=== PATIENT | female | born 1985 | race Caucasian/White ===

== ENCOUNTER 2016-11-17 12:19 | Emergency (ER) | payer MEDICAID ==
[2016-11-17 12:33] VITALS: RESP 18; TEMP 98
--- NOTE | 2016-11-17 12:44 | UCPHY ---
[id number]/08/17 12:33 HPI/ROS: HPI: ROS: (Brenda Shepherd) Past Medical/Surgical History: HPI: 31-year-old female presents to urgent care with chief concern cough, subjective fever, burning sensation in her chest. Symptoms onset 2 days ago. Reports associated headache, sore throat, loss of voice, severe myalgias. Has taken ibuprofen and Tylenol with some improvement. Denies dizziness, dysphagia , shortness of breath, chest pain, abdominal pain, vomiting, diarrhea. Traveled back from [place] within the past week. Did not receive a flu shot this year. Has no primary care provider. ROS:10 point review of systems is negative other than as stated in HPI (Brenda Shepherd) Physical Exam: Vital signs stable, reviewed by me General: Awake, alert, calm, cooperative. No acute distress. Head: Normalocephalic. Atraumatic. EENT: PERRLA. EOMI. No pallor or injection. Anicteric. No nystagmus. No injection. TMs intact bilaterally with normal landmarks. Rhinorrhea present with mildly erythematous nasal turbinates. Oropharynx without redness, exudates , or lesions. Tonsils 2+ bilaterally, no exudates. Neck: Supple, nontender. No lymphadenopathy. Full range of motion. No meningismus. Respiratory: Breathing unlabored. Breath sounds equal bilaterally and clear to auscultation. No adventitious sounds. CV: Chest nontender, atraumatic. Heart rate regular. No murmur, distal pulses 2+ bilaterally. Brisk cap refill all extremities. GI: Abdomen soft, nontender. Bowel sounds normoactive and positive x4 quadrants. Neuro: Alert. Oriented x 3. Speech clear. Nonfocal cranial nerves throughout. Sensation intact all extremities. Skin: Skin warm, dry, intact. No rash. Skin turgor normal. Extremities: Full range of motion in all 4 extremities. Strength 5+ all extremities. (Brenda Shepherd) Constitutional: Initial Vital Signs Temperature (C) 36.6 C 11/17/16 12:31 Heart Rate 99 11/17/16 12:31 Respiratory Rate 18 11/17/16 12:31 Blood Pressure 122/86 H 11/17/16 12:31 O2 Sat (%) 99 11/17/16 12:31 O2 Delivery Mode Room Air Allergies/Adverse Reactions: No Known Allergies Allergy (Unverified 11/02/13 23:39) Home Medications: Medication Instructions Recorded Vit27&Calcium/Iron/FA 1 each PO 11/02/13 [] Methimazole 11/03/13 Albuterol Hfa Anes Only [Proair 2 puffs IH QID PRN #1 mdi 11/17/16 Hfa Anes Only] Oseltamivir Phosphate [Tamiflu] 75 mg PO BID #10 cap 11/17/16 Medical Decision Making ED Course/Re-evaluation: Afebrile nontoxic 31-year-old female presents to urgent care with symptoms of upper respiratory infection and burning in her chest. Her symptoms onset suddenly 2 days ago. She is eating and drinking. She has no vomiting. Flu swab positive for influenza A (Brenda Shepherd) Urgent Care BANK NOTE DESIGNER supervision Physician documentation: The patient was evaluated and managed by the nurse practitioner. My co- signature indicates that I have reviewed this chart and I agree with the findings and plan of care as documented. I am the secondary supervising physician. (Ranjeet Galvin) Differential Diagnosis: Differential includes but is not limited to influenza, viral upper respiratory infection, pneumonia, reactive airway disease (Brenda Shepherd) - Data Points Medications Given: Discontinued Medications Ondansetron HCl (Zofran Odt) 4 mg PO EDNOW ONE Stop: 11/17/16 12:48 Last Admin: 11/17/16 13:00 Dose: 4 mg Departure - Departure Disposition: Home, Routine, Self-Care Clinical Impression: Influenza A Condition: Good Instructions: Influenza (ED) Additional Instructions: Plan: Drink plenty of fluids. Rest. Tamiflu as directed twice daily for 5 days Use your albuterol inhaler 2 puffs every 4-6 hours for shortness of breath, wheezing. You may use over the counter cough and cold medicine for symptom relief. You may use a 1000 mg of Tylenol every 8 hours and/or 600 mg Ibuprofen with food for fever and pain control. Use saline spray or saline irrigation to each nostril twice daily-morning and evening. For sore throat, gargle with warm salt water three times daily. Return to Urgent Care or ER if you develop chest pain, difficulty breathing, or difficulty swallowing. Return here promptly for worsening symptoms such as facial/tooth pain, chest pain, shortness of breath, unremitting fever, nausea, vomiting, difficulty swallowing. As discussed, I recommend that you get established with a primary care provider. You can call [facility] in [place] as they do take Medicaid. Referrals: NONE *PRIMARY CARE P,. [Primary Care Provider] - As per Instructions [facility] [Outside] - As per Instructions Prescriptions: Albuterol Hfa Anes Only [Proair Hfa Anes Only] 2 puffs IH QID PRN #1 mdi PRN Reason: Short Of Breath/Dyspnea Oseltamivir Phosphate [Tamiflu] 75 mg PO BID #10 cap - PQRS PQRS Measurement: Not applicable (Brenda Shepherd)
[2016-11-17] MEDS ORDERED: ONDANSETRON DISINTEGRATING 4 MG TAB PO ONE (12:47)
[2016-11-17 13:01] VITALS: BP 118/100; PULSE 86; O2SAT 96
== END 2016-11-17 13:01 | disposition home or self-care (01) ==
LOC: CED 12:19
DX: J11.1 Influenza due to unidentified influenza virus with other respiratory manifestations (principal)
CPT/HCPCS: 87400-PO; 87880-PO; G0463-PO

== ENCOUNTER → 2017-09-23 | Outpatient (CLI) | payer MEDICAID | LOC: FIMAGING 10:20 | PROVIDERS: ATTEND Obstetrics & Gynecology Gynecology | DX: O30.042 Twin pregnancy, dichorionic/diamniotic, second trimester (principal); O99.282 Endocrine, nutritional and metabolic diseases complicating pregnancy, second trimester; E05.00 Thyrotoxicosis with diffuse goiter without thyrotoxic crisis or storm; Z3A.24 24 weeks gestation of pregnancy ==

== ENCOUNTER → 2017-10-21 | Outpatient (CLI) | payer MEDICAID | LOC: FIMAGING 13:33 | PROVIDERS: ATTEND Obstetrics & Gynecology Gynecology | DX: O30.043 Twin pregnancy, dichorionic/diamniotic, third trimester (principal); O99.283 Endocrine, nutritional and metabolic diseases complicating pregnancy, third trimester; E05.00 Thyrotoxicosis with diffuse goiter without thyrotoxic crisis or storm; Z3A.28 28 weeks gestation of pregnancy ==

== ENCOUNTER → 2017-11-18 | Outpatient (CLI) | payer MEDICAID | LOC: FIMAGING 14:29 | PROVIDERS: ATTEND Obstetrics & Gynecology Gynecology | DX: O30.043 Twin pregnancy, dichorionic/diamniotic, third trimester (principal); O99.283 Endocrine, nutritional and metabolic diseases complicating pregnancy, third trimester; E05.00 Thyrotoxicosis with diffuse goiter without thyrotoxic crisis or storm; Z3A.32 32 weeks gestation of pregnancy ==

== ENCOUNTER 2017-11-28 11:54 | Observation (INO) | payer MEDICAID ==
--- NOTE | 2017-11-28 13:28 | SOAPPROG ---
SOAP Progress Note Assessment/Plan: Assessment: IUP at 34 2/7 weeks gestation Twin IUP Reactive NST Plan: Follow up Friday for weekly NST 11/28/17 13:26 Subjective: Patient for NST twin IUP Objective: FHT: A125/B 120 bpm Reactive NST - Pending Discharge Pending Discharge Within 24 Hours: No Pending Discharge Within 48 Hours: No ICD10 Worksheet Patient Problems: Problems Problem Status Onset Graves disease Acute Anxiety Acute GBS (group B Streptococcus carrier), +RV culture, currently Acute Active labor at term Acute
== END 2017-11-28 13:05 | disposition home or self-care (01) ==
LOC: FLD 11:54
PROVIDERS: ADMIT Obstetrics & Gynecology; ATTEND Obstetrics & Gynecology
DX: O30.003 Twin pregnancy, unspecified number of placenta and unspecified number of amniotic sacs, third trimester (principal); Z3A.34 34 weeks gestation of pregnancy

== ENCOUNTER 2017-12-02 09:38 | Observation (INO) | payer MEDICAID ==
[2017-12-02] MEDS ORDERED: TERBUTALINE SULFATE 1 MG/ML VIAL SC ONE (10:27)
--- NOTE | 2017-12-02 10:40 | OBPROG ---
Labor Progress Note Assessment/Plan: Assessment: IUP at 35 wks TWIN monitoring Plan: NST then d/c home 12/02/17 10:38 - FHR Assessment Twin A FHR (bpm): 130 FHR Pattern Variability: Moderate FHR Category: 1 Twin B FHR (bpm): 140 FHR Pattern Variability: Moderate FHR Category: 1 (both babies reactive NSTs - accels, no decels) ICD10 Worksheet Patient Problems: Problems Problem Status Onset Active labor at term Acute Anxiety Acute GBS (group B Streptococcus carrier), +RV culture, currently Acute Graves disease Acute
== END 2017-12-02 10:45 | disposition home or self-care (01) ==
LOC: FLD 09:38
PROVIDERS: ADMIT Obstetrics & Gynecology; ATTEND Obstetrics & Gynecology
DX: O30.003 Twin pregnancy, unspecified number of placenta and unspecified number of amniotic sacs, third trimester (principal); Z3A.35 35 weeks gestation of pregnancy

== ENCOUNTER 2017-12-05 13:00 | Observation (INO) | payer MEDICAID | END 2017-12-05 13:30 | disposition home or self-care (01) | LOC: FLD 13:00 | PROVIDERS: ADMIT Obstetrics & Gynecology; ATTEND Obstetrics & Gynecology | DX: O30.099 Twin pregnancy, unable to determine number of placenta and number of amniotic sacs, unspecified trimester (principal); Z3A.00 Weeks of gestation of pregnancy not specified ==

== ENCOUNTER 2017-12-09 12:25 | Observation (INO) | payer MEDICAID ==
[2017-12-09] MEDS ORDERED: TERBUTALINE SULFATE 1 MG/ML VIAL SC ONE (12:50)
== END 2017-12-09 13:45 | disposition home or self-care (01) ==
LOC: FLD 12:25
PROVIDERS: ADMIT Obstetrics & Gynecology; ATTEND Obstetrics & Gynecology
DX: O30.003 Twin pregnancy, unspecified number of placenta and unspecified number of amniotic sacs, third trimester (principal); Z3A.35 35 weeks gestation of pregnancy

== ENCOUNTER 2017-12-12 12:59 | Observation (INO) | payer MEDICAID | END 2017-12-12 13:45 | disposition home or self-care (01) | LOC: FLD 12:59 | PROVIDERS: ADMIT Obstetrics & Gynecology; ATTEND Obstetrics & Gynecology | DX: O30.099 Twin pregnancy, unable to determine number of placenta and number of amniotic sacs, unspecified trimester (principal); Z3A.00 Weeks of gestation of pregnancy not specified ==

== ENCOUNTER 2017-12-16 11:12 | Outpatient (CLI) | payer MEDICAID | END 2017-12-16 15:02 | disposition home or self-care (01) | LOC: FOBOP 11:12 | PROVIDERS: ATTEND Obstetrics & Gynecology Gynecology | DX: O30.043 Twin pregnancy, dichorionic/diamniotic, third trimester (principal); O99.283 Endocrine, nutritional and metabolic diseases complicating pregnancy, third trimester; Z3A.36 36 weeks gestation of pregnancy ==

== ENCOUNTER 2017-12-17 07:19 | Inpatient (IN) | payer MEDICAID ==
[2017-12-17] MEDS ORDERED: LIDOCAINE 1% 300 MG/30 ML SDV ONE (07:33)
[2017-12-17] MEDS ORDERED: OLIVE OIL 118 ML BTL ONE (07:33)
[2017-12-17] MEDS ORDERED: TERBUTALINE SULFATE 1 MG/ML VIAL ONE (07:33)
[2017-12-17] MEDS ORDERED: AMMONIA AROMATIC 1 EACH AMP IH ONE (07:33)
[2017-12-17] MEDS ORDERED: OXYTOCIN 10 UNIT/ML VIAL ONE (07:34)
[2017-12-17] MEDS ORDERED: MISOPROSTOL 200 MCG TAB ONE (07:34)
[2017-12-17] MEDS ORDERED: LR 1,000 ML IV PRN (07:42)
[2017-12-17] MEDS ORDERED: OLIVE OIL 118 ML BTL MISC PRN (07:42)
[2017-12-17] MEDS ORDERED: TERBUTALINE SULFATE 1 MG/ML VIAL IV PRN (07:42)
[2017-12-17] MEDS ORDERED: MISOPROSTOL 200 MCG TAB PR PRN (07:42)
[2017-12-17] MEDS ORDERED: OXYTOCIN 20 UNIT in LR 1,000 ML IV PRN (07:42)
[2017-12-17] MEDS ORDERED: EPSOM SALT 454 GM TP PRN (07:42)
--- NOTE | 2017-12-17 08:02 | PREANESOB ---
Obstetric Pre-Anesthesia Info - Info Status: Full Term, Twins Monitors: External FHR Pattern: Reassuring - Labor Status Cervical Dilation per last OB SVE: 10 PIH: No Magnesium Sulfate in Use: No Anesthesia Allergies/Adverse Reactions: Allergy/AdvReac Type Severity Reaction Status Date / Time No Known Allergies Allergy Unverified 11/02/13 23:39 Home Medications: Medication Instructions Recorded Vit27&Calcium/Iron/FA 1 each PO 11/02/13 [] Methimazole 11/03/13 Albuterol Hfa Anes Only [Proair 2 puffs IH QID PRN #1 mdi 11/17/16 Hfa Anes Only] Oseltamivir Phosphate [Tamiflu] 75 mg PO BID #10 cap 11/17/16 Visit Medications: Generic Name Dose Route Start Last Admin Trade Name Freq PRN Reason Stop Dose Admin Lactated Ringer's 1,000 mls @ 0 mls/hr 12/17/17 07:42 Lr IV 12/18/17 07:41 PRN PRN SEE PROTOCOL CONDITIONS Protocol Per Protocol Oxytocin 20 unit/ Lactated 1,002 mls @ 150 mls/hr 12/17/17 07:42 Ringer's IV PRN PRN Post- bleeding Ibuprofen 600 mg 12/17/17 07:42 Motrin PO 06/15/18 07:41 Q6HRS PRN post , inflammation Magnesium Sulfate 454 gm 12/17/17 07:42 Epsom Salt TP 06/15/18 07:41 Q1H PRN perineal discomfort Misoprostol 800 - 1,000 mcg 12/17/17 07:42 Cytotec NM ONCE PRN Vaginal Atony/Bleeding [place] Oil 118 ml 12/17/17 07:42 Sweet Oil MISC 06/15/18 07:41 ONCE PRN perineal massage Terbutaline Sulfate 0.25 mg 12/17/17 07:42 Brethine IV 06/15/18 07:41 ONCE PRN Tachysystole Discontinued Medications Generic Name Dose Route Start Last Admin Trade Name Freq PRN Reason Stop Dose Admin Ammonia (Aromatic Spirit) Confirm 12/17/17 07:33 Ammonia Aromatic Administered 12/17/17 07:34 Dose 1 each IH .STK-MED ONE Lidocaine HCl Confirm 12/17/17 07:33 Lidocaine Hcl 1% Administered 12/17/17 07:34 Dose 300 mg .ROUTE .STK-MED ONE Misoprostol Confirm 12/17/17 07:34 Cytotec Administered 12/17/17 07:35 Dose 1,000 mcg .ROUTE .STK-MED ONE [place] Oil Confirm 12/17/17 07:33 Sweet Oil Administered 12/17/17 07:34 Dose 118 ml .ROUTE .STK-MED ONE Oxytocin Confirm 12/17/17 07:34 Pitocin Administered 12/17/17 07:35 Dose 40 unit .ROUTE .STK-MED ONE Terbutaline Sulfate Confirm 12/17/17 07:33 Brethine Administered 12/17/17 07:34 Dose 1 mg .ROUTE .STK-MED ONE - Anesthesia History Response to Local Anesthetics: Normal Anesthesia & Operative History: Other (Specify) (Successful prior labor epidural. PONV with prior GA.) - Focused Exam Neck exam: FROM Mallampati Score: Class 2 Mouth exam: normal dental/mouth exam Pulmonary: no respiratory distress, no rales or rhonchi, clear to auscultation Cardiovascular: regular rate and rhythym, no murmur, rub, or gallop
[2017-12-17 08:08] LABS: PLATELET COUNT 134 10^3/uL (150-400)
[2017-12-17] MEDS ORDERED: HYDROCORTISONE 0.5% CREAM TP PRN (09:34)
[2017-12-17] MEDS ORDERED: SIMETHICONE 80 MG TAB CHEW PO PRN (09:34)
[2017-12-17] MEDS ORDERED: ACETAMINOPHEN 325 MG TAB PO PRN (09:34)
[2017-12-17] MEDS ORDERED: DOCUSATE SODIUM 100 MG CAP PO PRN (09:34)
[2017-12-17] MEDS ORDERED: HYDROCODONE/APAP 5/325 TAB PO PRN (09:34)
[2017-12-17] MEDS: IBUPROFEN 600 MG TAB PO PRN ×3 (09:49→21:33)
--- NOTE | 2017-12-17 10:08 | OBDEL ---
Info Type: Vaginal Presentation at Delivery: Vertex L&D Analgesia/Anesthesia Type: Local (1% lidocaine) GBS+: No Intrapartum Medications: Generic Name Dose Route Start Last Admin Trade Name Freq PRN Reason Stop Dose Admin Ibuprofen 600 mg 12/17/17 07:42 12/17/17 09:49 Motrin PO 06/15/18 07:41 600 mg Q6HRS PRN Administration post , inflammation - Care Provider Type Bar And Segment Assembler/NUCLEAR RADIOLOGIST: Heather Nguyen - Hospital Course Intrapartum: 12/17/17 10:06 Pt presented with SROM and spontaneous labor. She was complete/ +2 station with twin A. Indications for Delivery: Spontaneous Labor Vaginal Delivery - Delivery Provider Delivery Physician/CNM: Aubree Whitman - Labor and Delivery Onset of Contractions Date: 12/17/17 Onset of Contractions Time: 05:00 Onset of Contractions Type: Spontaneous Rupture of Membranes Date: 12/17/17 Rupture of Membranes Time: 05:15 Rupture of Membranes Type: Artificial (AROM twin B 7:57 clear fluid) Amniotic Fluid Color: Clear Dilation Complete Date: 12/17/17 Dilation Complete Time: 07:18 Placenta Delivery Date: 12/17/17 Placenta Delivery Time: 08:08 Total Hours of Labor: 3 Non-surgical Procedures: Amniotomy Laceration: 1st Degree, 2nd Degree Repair: 2-0, Vicryl Vaginal Sponge Count Correct: Yes Vaginal Needle Count Correct: Yes Vaginal Sweep Performed: Yes EBL: 700 Delivery Events: Post Hemorrhage, Other (Specify) - Medications Labor Augmentation/Induction Methods Used: None Fifield Data BRADLEY: 01/07/18 Gestational Age: 37 week(s) and 0 day(s) Whitt Delivery Date: 12/17/17 Delivery Time: 07:52 Sex of Infant: Female Weight (gm): 3540 g Score (1 Min): 9 Score (5 Min): 10 Twin B Delivery Date: 12/17/17 Delivery Time: 08:02 Sex of : Male Score (1 Min): 8 Score (5 Min): 9 ICD10 Worksheet Patient Problems: Problems Problem Status Onset (spontaneous vaginal delivery) Acute Twin , delivered vaginally, current hospitalization Acute Active labor at term Acute Anxiety Acute GBS (group B Streptococcus carrier), +RV culture, currently Acute Graves disease Acute - ICD10 Problem Qualifiers (1) (spontaneous vaginal delivery) (2) Twin , delivered vaginally, current hospitalization
--- NOTE | 2017-12-17 10:31 | GHP ---
[f rep st] PREOP HISTORY AND PHYSICAL DATE OF ADMISSION: 12/17/2017 ADMITTING DIAGNOSIS: Intrauterine at 37 weeks' gestation with diamniotic dichorionic twins and active labor. HISTORY OF PRESENT ILLNESS: The patient is a 32-year-old 2, para 1-0-0-1, with a last menstr ual period of 04/06/2017 and an EDC of 01/07/2018, which was confirmed by a sure and regular last men strual period and true conception date. The patient had originally planned a home but was diag nosed with twins and transferred care to [facility] at 22 weeks after her 19-week diagnosis of twins. The patient has had care complicated by diamniotic dichorionic twin gestation, a nd an ultrasound yesterday on 12/16/2017 diagnosed baby B as intrauterine growth restriction with maria e vated Dopplers, and she was recommended to be delivered in the next couple days. Patient was 3 cm an d had her membranes swept yesterday evening, and she presented in active labor this morning. She als o has a history of Graves disease. She is Rh negative. She has a history of anxiety and depression. No other risk factors. When the patient presented to labor and delivery, she was complete and +2 w ith baby A. She had spontaneous rupture of membranes approximately 2 hours prior to presentation and had come in with active strong labor contractions. We delivered in the operating room. Baby A and baby B were both cephalic. Baby B had artificial rupture of membranes for clear fluid. She delivere d both babies atraumatically without difficulties. The placenta was delivered spontaneously with gen tle traction. She had a second-degree laceration that was repaired with 2-0 Vicryl and a normal deli very course. The patient had excessive EBL, approximately 600, and we are following her and treating her medically. PAST OBSTETRICAL HISTORY: In October of 2013, she had a viable female, 5 pounds 11 ounces, 38 weeks , spontaneous labor. She was GBS positive, and this is her second . PAST GYNECOLOGICAL HISTORY: She had menarche at age 12, interval every 25 days, sure and regular las t menstrual period, spontaneous conception. One history of an abnormal Pap at age 20. No treatment, done well since. She had a Mirena that she used for a couple years after the of her daughter. She has also used OCPs and NuvaRing. No other gynecological complications. PAST MEDICAL HISTORY: Significant for Graves disease. The patient has been on PTU. She stopped PTU in October. She has been followed closely by Endocrinology. She also has a history of anxiety and depression. PAST SURGICAL HISTORY: She had a history of a tonsillectomy at age 5, wisdom teeth extraction, and r ight knee surgery secondary to a soccer injury. She is also Rh negative, has been treated with RhoGA M. SOCIAL HISTORY: Patient is . She lives with her . 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 She denies tobacco, alcohol, and drug use. LABORATORY DATA: She is O negative, antibody negative. RPR nonreactive. Rubella immune. Hepatitis negative. HIV negative. Pap declined. Gonorrhea and chlamydia negative. One-hour GTT 91. GBS wa s negative for this . However, patient has recently had an episode of strep pharyngitis, an d she was on oral penicillin when her GBS culture was done, and she currently is on penicillin to com plete her course. FAMILY HISTORY: Paternal grandmother had an CO. She has uncles with adult onset diabetes. Mother h as Hosea's. Her paternal aunt of cervical cancer. Maternal uncle of brain cancer. Ma ternal uncle has melanoma, and that is all. OBJECTIVE: Today, she is afebrile. Vital signs are stable. heart tones were 130s to 140s and reactive, category 1 with both twins. ASSESSMENT/PLAN: A 32-year-old 2, para 1-0-0-1, 37-0/7 weeks' gestation with diamniotic dich orionic twins in active labor, intrauterine growth restriction with twin B. The patient had a succes sful spontaneous vaginal delivery without complications. /[id number]/MODL
[2017-12-17] MEDS ORDERED: METHYLERGONOVINE MAL 0.2 MG/ML INJ IM ONE (11:05)
[2017-12-17] MEDS ORDERED: OXYTOCIN 20 UNIT in LR 1,000 ML IV SCH (11:15)
[2017-12-18] MEDS: IBUPROFEN 600 MG TAB PO PRN ×3 (02:13→16:06)
[2017-12-18] MEDS: LEVOTHYROXINE 25 MCG TAB PO SCH (06:04)
--- NOTE | 2017-12-18 12:23 | OBPP ---
Progress Note Assessment/Plan: Assessment: [id number] s/p s/p PPH PPD#1 anemia Plan: routine PP care cont support PRN start PO iron TID start PO methergine x 4 doses plan to d/c home tomorrow 12/18/17 15:27 12/18/17 15:40 Subjective/ Course: 12/18/17 15:33 Pt doing well, she is happy with her experience. She reports having some moderate bleeding with passing of small clots. She denies any pain. She is without difficulty. FOB @ BS, supportive. Denies any depression. Objective: 12/18/17 05:50 Patient ABO/Rh O NEGATIVE 12/17/17 09:55 Temp Pulse Resp BP Pulse Ox 36.0 C 87 17 122/84 H 93 12/18/17 08:58 12/18/17 08:58 12/18/17 08:58 12/18/17 08:58 12/17/17 20:00 Uterine Position/Fundal Height: Umbilicus -1, Midline Uterine Tone: Firm (with minimal trickle of lochia) Physical Exam - Physical Exam Neck: supple Respiratory: normal breath sounds Cardiac/Chest: regular rate, rhythm Abdomen: non-tender, soft Skin: normal color, warm/dry Neuro/Psych: alert, normal mood/affect, oriented x 3
[2017-12-18] MEDS: METHYLERGONOVINE MAL 0.2 MG TAB PO SCH ×2 (13:17→19:38)
[2017-12-18] MEDS: IRON POLYSAC/IRON HEME 28 MG TAB PO SCH ×2 (16:06→21:13)
[2017-12-19] MEDS: METHYLERGONOVINE MAL 0.2 MG TAB PO SCH ×2 (00:44→07:54)
[2017-12-19] MEDS: IBUPROFEN 600 MG TAB PO PRN ×3 (02:46→13:56)
[2017-12-19] MEDS: LEVOTHYROXINE 25 MCG TAB PO SCH (06:12)
[2017-12-19] MEDS: IRON POLYSAC/IRON HEME 28 MG TAB PO SCH ×2 (07:54→16:51)
[2017-12-19 09:19] VITALS: BP 126/80; PULSE 82; RESP 19; TEMP 97.8; O2SAT 96
--- NOTE | 2017-12-19 17:30 | OBPP ---
Progress Note Assessment/Plan: Assessment: PPD 2 s/p term twins depr/anxiety hypothyroid anemia Plan: d/c to [place], on iron BID 12/19/17 17:26 12/19/17 17:30 Subjective/ Course: 12/18/17 15:33 Pt doing well, she is happy with her experience. She reports having some moderate bleeding with passing of small clots. She denies any pain. She is without difficulty. FOB @ BS, supportive. Denies any depression. 12/19/17 17:28 PT SEEN APPROX 1200, NOTE WRITTEN LATE Pt doing great. bld is light. urinating fine. babies are working on latching but pt also pumping. good colostrum. mod cramps but ibu helping. pt will be [place] until babies d/c Objective: 12/18/17 05:50 Patient ABO/Rh O NEGATIVE 12/17/17 09:55 Temp Pulse Resp BP Pulse Ox 36.6 C 82 19 126/80 H 96 12/19/17 08:45 12/19/17 08:45 12/19/17 08:45 12/19/17 08:45 12/19/17 08:45 Uterine Position/Fundal Height: Umbilicus -1 Uterine Tone: Firm Physical Exam - Physical Exam Abdomen: non-tender, soft, other (FF at umb -1) Extremities: non-tender, pedal edema (minimal) Skin: normal color, warm/dry Neuro/Psych: alert, normal mood/affect
--- NOTE | 2017-12-19 17:35 | OBGCSDC ---
General Delivery Information - General Info : 2 Para: 2 Abortions: 0 Type: Vaginal L&D Analgesia/Anesthesia Type: None Admission Date: 12/17/17 Labs: Patient ABO/Rh O NEGATIVE 12/17/17 09:55 Hct 28.5 % (38.0-47.0) L D 12/18/17 05:50 - Hospital Course Intrapartum: 12/17/17 10:06 Pt presented with SROM and spontaneous labor. She was complete/ +2 station with twin A. : 12/18/17 15:33 Pt doing well, she is happy with her experience. She reports having some moderate bleeding with passing of small clots. She denies any pain. She is without difficulty. FOB @ BS, supportive. Denies any depression. 12/19/17 17:28 PT SEEN APPROX 1200, NOTE WRITTEN LATE Pt doing great. bld is light. urinating fine. babies are working on latching but pt also pumping. good colostrum. mod cramps but ibu helping. pt will be [place] until babies d/c Vaginal - Delivery Provider Delivery Physician/CNM: Aubree Whitman - Diagnosis Labor: Spontaneous Rupture of Membranes Type: Artificial (AROM twin B 7:57 clear fluid) Amniotic Fluid Color: Clear Laceration: 1st Degree, 2nd Degree Repair: 2-0, Vicryl Delivery Events: Post Hemorrhage, Other (Specify) - Procedures Non-surgical Procedures: Amniotomy - Delivery Non-surgical Procedures: Amniotomy EBL: 700 Data BRADLEY: 01/07/18 Gestational Age: 37 week(s) and 2 day(s) Whitt Delivery Date: 12/17/17 Delivery Time: 07:52 Sex of Infant: Female [place] Weight (gm): 3540 g Score (1 Min): 9 Score (5 Min): 10 Twin B Delivery Date: 12/17/17 Delivery Time: 08:02 Sex of Infant: Male Score (1 Min): 8 Score (5 Min): 9 Twin A Delivery Date: 12/17/17 Delivery Time: 07:52 Sex of : Female Score (1 Min): 9 Score (5 Min): 10 Discharge Information - Discharge Information Condition: Good Instruction/Follow Up: Four Weeks (with therapist), Six Weeks (with BP)
== END 2017-12-19 18:00 | disposition home or self-care (01) | DRG 775 ==
LOC: FLD 07:19 → FOB 14:08
PROVIDERS: ADMIT Obstetrics & Gynecology; ATTEND Obstetrics & Gynecology
PROC: 0KQM0ZZ Repair Perineum Muscle, Open Approach (ICD-10-PCS; principal; 2017-12-17)
PROC: 10E0XZZ Delivery of Products of Conception, External Approach (ICD-10-PCS; principal; 2017-12-17)
PROC: 10907ZC Drainage of Amniotic Fluid, Therapeutic from Products of Conception, Via Natural or Artificial Opening (ICD-10-PCS; principal; 2017-12-17)
DX: O99.284 Endocrine, nutritional and metabolic diseases complicating childbirth (principal); O70.1 Second degree perineal laceration during delivery; Z37.2 Twins, both liveborn; Z3A.37 37 weeks gestation of pregnancy; E03.9 Hypothyroidism, unspecified; O99.02 Anemia complicating childbirth; D64.9 Anemia, unspecified
CPT/HCPCS: J2590; J3105